=== PATIENT | male | born 1945 | race Caucasian/White ===

== ENCOUNTER 2016-11-12 09:57 | Emergency (ER) | payer OTHER, MEDICAID ==
--- NOTE | 2016-11-12 10:09 | DR.EXTPAIN ---
HPI - Time seen Time seen: 10:05 - PCP Primary Care Physician: KAVITHA - HPI Comment HPI Comment: PATIENT COMPLAINIG OF CHEST PAIN, TARIQ PAIN AND UPPER BACK PAIN. NO LOC. DRANK ALCOHOL AND HAD SLIGHT INCOORDINATION. - Complaint/Symptoms Chief Complaint Doctor Comments: FELL, NECK, CHEST AND BACK PAIN. Chief Complaint:: PT. FELL AT HOME AND C/O OF PAIN ALL OVER. PT. C/O NECK, BACK , AND CHEST PAIN. - Nurses notes reviewed Nurses Notes Review: Yes - Source History Provided: EMS - Mode of arrival Mode of Arrival: EMS - Timing Onset of Chief Complaint: 11/12/16 - Context History of: None - Associated signs and symptoms Associated Signs and Symptoms: Pain PMH - PMH Past Medical History: Yes Past Medical History: Depression, Anxiety, COPD, GERD, Arthritis, Hypertension Past Surgical History: Yes Surgical History: Ortho Surgery, Unknown - Family History History of Family Medical Conditions: Yes Family Medical History: Diabetes Mellitus, [place], Coronary Artery Disease, Sudden Cardiac , Hypertension - Social History Does patient currently use any type of tobacco product: Yes Have you used tobacco products in the last 12 months: Yes Type of Tobacco Use: Cigarettes Does any household member use tobacco: No Alcohol Use: Heavy Do you use any recreational Drugs:: No Lives With: Family Lives Where: Home - infectious screening In the last 2 months have you had wt loss of >10#?: NO Have you had fever, night sweats or hemotysis?: No Have you traveled outside the country in the last 6 months?: No Isolation: Standard ROS - Review of Systems Constitutional: Weakness, Fatigue. negative: Chills, Diaphoresis, Fever Eyes: No Symptoms Reported. negative: Eye Pain, Discharge ENTM: No Symptoms Reported. negative: Ear Pain, Nose Discharge, Nose Congestion , Throat Pain Respiratoy: Non-Productive Cough, Short of Breath. negative: Productive Cough, Wheezing, Hemoptysis Cardiovascular: negative: Edema, Palpitations, Syncope Gastrointestinal/Abdominal: negative: Abdominal Pain, Nausea, Vomiting Genitourinary: negative: Dysuria, Frequency, Hematuria Neurological: Headache, Weakness. negative: Dizziness Musculoskeletal: Back Pain, Neck Pain, Neck Integumentary: Wound (STASIS DERMATITIS) Hematologic/Lymphatic: Easy Bruising Endocrine: negative: Flushing, Increased Thirst, Increased Urine Psychiatric: negative: Hallucinations All Other Systems: Reviewed and Negative PE - Vital Signs Vitals: Temperature 98.0 F Pulse Rate 70 Respiratory Rate 17 Blood Pressure [Right Arm] 110/59 Blood Pressure [Right Arm] 140/79 Blood Pressure [Left Arm] 102/60 Blood Pressure 139/81 O2 Sat by Pulse Oximetry 97 - General Limitations: No Limitations General Appearance: Alert - Head Head Exam: Normal Inspection - Eyes Eye exam: Normal Appearance - ENT ENT Exam: Normal External Ear Exam - Neck Neck Exam: Trachea Midline - Chest Chest Inspection: Symmetric Chest Wall Rise - Respiratory Respiratory Exam: negative: Accessory Muscle Use Respiratory Exam: Bilateral Rhonchi, Upper Rhonchi, Lower Rhonchi - Cardiovascular Cardiovascular Exam: Regular Rate, Normal Rhythm, Normal Heart Sounds - Abdominal Exam Abdominal Exam: Normal Bowel Sounds, Soft, Tenderness Abdominal Tenderness: Diffuse, Mild - Extremities Extremities Exam: Normal Inspection - Lower Extremities Neurovascular/Tendon Exam: Normal Capillary Refill Gait Exam: Not Tested/Not Observed - Back Back Exam: Paraspinal Tenderness - Neurological Neurological Exam: Alert, Oriented X3 - Psychiatric Psychiatric Exam: Anxious - Skin Skin Exam: Erythema MDM - Differential Diagnosis Differential Diagnosis: Contusion, Fracture, Hematoma, Laceration, Neurovascular Injury, Sprain Course - Treatment Treatment: SEE ORDERS. REPEAT CARDIAC ENZYMES IMPROVE. - Consultation Consultation Comments: PATIENTS TROPONINE IS REPEATED IN ED AND IS IMPOVIND. - Education/Counseling Education/Counseling: Patient, Family Educated On: Treatment, Diagnosis ROR - Labs Reviewed Laboratory Results Reviewed?: Yes Result Diagrams: 11/12/16 10:16 11/12/16 14:15 Laboratory: WBC 11.5 X10^3/uL (3.6-10.0) H 11/12/16 10:16 RBC 4.01 X10^6/uL (4.7-6.0) L 11/12/16 10:16 Hgb 12.7 g/dL (13.5-18.0) L 11/12/16 10:16 Hct 37.8 % (42.0-54.0) L 11/12/16 10:16 MCV 94.2 fL (80.0-100.0) 11/12/16 10:16 MCH 31.5 pg (27.0-34.0) 11/12/16 10:16 MCHC 33.5 g/dL (33.0-35.0) 11/12/16 10:16 RDW 13.9 % (11.6-16.5) 11/12/16 10:16 Plt Count 265 X10^3/uL (150.0-450.0) 11/12/16 10:16 MPV 7.4 fL (7.4-11.0) 11/12/16 10:16 Neut % 73.1 % (42.0-75.0) 11/12/16 10:16 Lymph % 19.4 % (21.0-51.0) L 11/12/16 10:16 [place] % 5.9 % (0.0-13.0) 11/12/16 10:16 Eos % 0.6 % (0.9-2.9) L 11/12/16 10:16 Baso % 1.0 % (0.2-1.0) 11/12/16 10:16 Neut # 8.4 x10^3/uL (2.2-4.8) H 11/12/16 10:16 Lymph # 2.2 X10^3/uL (1.3-2.9) 11/12/16 10:16 [place] # 0.7 x10^3/uL (0.3-0.8) 11/12/16 10:16 Eos # 0.1 x10^3/uL (0.0-0.2) 11/12/16 10:16 Baso # 0.1 X10^3/uL (0.0-0.1) 11/12/16 10:16 Absolute Nucleated RBC 0.0 /100WBC 11/12/16 10:16 Sodium 138 mmol/L (136-145) 11/12/16 14:15 Corrected Sodium TNP 11/12/16 14:15 Potassium 5.3 mmol/L (3.5-5.1) H 11/12/16 14:15 Chloride 107 mmol/L (98-107) 11/12/16 14:15 Carbon Dioxide 16.8 mmol/L (21-32) L 11/12/16 14:15 BUN 14 mg/dL (7-18) 11/12/16 14:15 Creatinine 1.40 mg/dL (0.70-1.30) H 11/12/16 14:15 Est GFR (MDRD) Af Amer > 60 (>60) 11/12/16 14:15 Est GFR (MDRD) Non-Af 53 (>60) L 11/12/16 14:15 Glucose 82 mg/dL (65-99) 11/12/16 14:15 Calcium 8.5 mg/dL (8.5-10.1) 11/12/16 14:15 Corrected Calcium 9.1 mg/dL (8.5-10.1) 11/12/16 14:15 Total Bilirubin 0.30 mg/dL (0.2-1.0) 11/12/16 14:15 AST 51 Units/L (15-37) H 11/12/16 14:15 ALT 18 Units/L (12-78) 11/12/16 14:15 Alkaline Phosphatase 67 Units/L (46-116) 11/12/16 14:15 Creatine Kinase 2252 Units/L (39-308) H 11/12/16 14:55 CK-MB (CK-2) 3.9 ng/mL (0-4.0) 11/12/16 14:55 CK/CKMB % Calc 0.2 % (<4) 11/12/16 14:55 Troponin I < 0.02 ng/mL (0-1.5) 11/12/16 14:55 Total Protein 6.6 g/dL (6.4-8.2) 11/12/16 14:15 Albumin 3.2 g/dL (3.4-5.0) L 11/12/16 14:15 Globulin 3.4 g/dL (2.5-4.5) 11/12/16 14:15 Albumin/Globulin Ratio 0.9 Ratio (1.1-2.1) L 11/12/16 14:15 Ethyl Alcohol mg/dL 247 mg/dL (0-19.9) H 11/12/16 10:16 - XRAY XRAY Interpreted by: Radiologist XRAY Findings: REPORT DISCUS WITH PATIENT. - EKG Rhythm: NSR (EKG NOTED) - Diagnosis Discharge Problem: Alcohol use disorder, Abnormal cardiac enzyme level, Chest wall pain, Cervical muscle strain - Discharge Plan Disposition: 01 HOME, SELF-CARE Condition: Stable Prescriptions: Ibuprofen [MOTRIN TAB 600 MG *] 600 mg PO BID PRN #20 tab PRN Reason: Pain/Inflammation Ranitidine HCl [ZANTAC TAB 150 MG *] 150 mg PO BID #60 tab - Follow ups/Referrals Follow ups/Referrals: Carol Ann [Primary Care Provider] - 3 days - Instructions Instructions: Chest Wall Pain, Cervical Strain and Sprain With Rehab-SportsMed , Alcohol Use Disorder Additional Instructions: RETURN TO ED IF WORSE.
[2016-11-12 10:14] VITALS: BP 139/81; BMI 15.5
[2016-11-12 10:27] LABS: BASOPHILS # (AUTO) 0.1 X10^3/uL (0.0-0.1); EOSINOPHILS # (AUTO) 0.1 x10^3/uL (0.0-0.2); EOSINOPHILS % (AUTO) 0.6 % (0.9-2.9); HEMATOCRIT 37.8 % (42.0-54.0); HEMOGLOBIN 12.7 g/dL (13.5-18.0); LYMPHOCYTES # (AUTO) 2.2 X10^3/uL (1.3-2.9); LYMPHOCYTES % (AUTO) 19.4 % (21.0-51.0); MEAN CORPUSCULAR HEMOGLOBIN 31.5 pg (27.0-34.0); MEAN CORPUSCULAR HGB CONC 33.5 g/dL (33.0-35.0); MEAN CORPUSCULAR VOLUME 94.2 fL (80.0-100.0); MEAN PLATELET VOLUME 7.4 fL (7.4-11.0); MONOCYTES # (AUTO) 0.7 x10^3/uL (0.3-0.8); MONOCYTES % (AUTO) 5.9 % (0.0-13.0); NEUTROPHILS # (AUTO) 8.4 x10^3/uL (2.2-4.8); NEUTROPHILS % (AUTO) 73.1 % (42.0-75.0); PLATELET COUNT 265 X10^3/uL (150.0-450.0); RED BLOOD COUNT 4.01 X10^6/uL (4.7-6.0); RED CELL DISTRIBUTION WIDTH 13.9 % (11.6-16.5); WHITE BLOOD COUNT 11.5 X10^3/uL (3.6-10.0)
[2016-11-12 10:42] LABS: BLOOD UREA NITROGEN 13 mg/dL (7-18); CALCIUM 8.6 mg/dL (8.5-10.1); CARBON DIOXIDE 18.1 mmol/L (21-32); CHLORIDE 105 mmol/L (98-107); CREATININE 1.37 mg/dL (0.70-1.30); GLUCOSE 83 mg/dL (65-99); SODIUM 137 mmol/L (136-145); TROPONIN I 0.02 ng/mL (0-1.5); eGFR BLACK RACES > 60 (>60); eGFR NON BLACK RACES 55 (>60)
--- NOTE | 2016-11-12 10:50 | CT ---
HISTORY: Fall Study: CT brain without contrast Comparison: 03/07/2014 Technique: Multiple axial images of the brain were obtained from the skull base to the vertex without administr ation of IV contrast. Dose reduction techniques including Automated Exposure Control (AEC) and adju stment of mA and kV were utilized. Findings: There is advanced generalized cerebral volume loss and nonspecific white matter hypoattenuation like ly due to chronic microvascular ischemic changes. No evidence of acute hemorrhage, midline shift, m ass effect or abnormal extra-axial fluid collection. The ventricular system is symmetric and nondil ated. The soft tissues and osseous structures are unremarkable. The visualized paranasal sinuses ar e clear. IMPRESSION: 1. Advanced chronic atrophy and nonspecific white matter changes likely due to microvascular ischemi a. No acute intracranial abnormality identified. Reported By:
--- NOTE | 2016-11-12 10:53 | CT ---
HISTORY: Fall Study: CT cervical spine without contrast Comparison: 08/10/2016 Technique: Multiple axial images of the cervical spine were obtained from the skull base to the thor acic inlet without administration of IV contrast. Sagittal and coronal reformats were performed and reviewed. Dose reduction techniques including Automated Exposure Control (AEC) and adjustment of mA and kV were utilized. Findings: Normal cervical alignment. Vertebral body heights are preserved. Multilevel spondylosis is present t hroughout the cervical spine. Mild facet degenerative changes and uncovertebral spurring is also see n. The posterior elements are intact. No evidence of acute fracture or dislocation. Severe emphysematous changes are visualized at the lung apices. The visualized lung apices are clear . IMPRESSION: 1. Chronic cervical degenerative changes without acute osseous abnormality. Reported By:
[2016-11-12 11:05] LABS: ALANINE AMINOTRANSFERASE 19 Units/L (12-78); ALBUMIN 3.5 g/dL (3.4-5.0); ALKALINE PHOSPHATASE 68 Units/L (46-116); ASPARTATE AMINO TRANSFERASE 54 Units/L (15-37); BLOOD ALCOHOL 247 mg/dL (0-19.9)
--- NOTE | 2016-11-12 11:06 | CT ---
HISTORY: Fall Study: CT chest without contrast Comparison: Chest radiograph 08/10/2016, thoracic spine CT 08/10/2016 Technique: Multiple axial images of the chest were obtained. Sagittal and coronal reconstructions w ere performed and reviewed. Dose reduction techniques including Automated Exposure Control (AEC) an d adjustment of mA and kV were utilized. Findings: There is diffuse osteopenia with increased kyphosis of the thoracic spine. Stable chronic compressi on fractures of T3, T6, T11, and T12 are noted. No acute fracture is identified. There is a chronic fracture of the mid sternal body with mild depression. Multilevel disc space narrowing and spondylo sis is present. There are chronic emphysematous changes present with mild peripheral areas of fibros is at the lung bases. No acute infiltrate, effusion or pneumothorax identified. There is chronic ath erosclerotic disease of the aorta and coronary arteries. Normal-sized heart. No pericardial effusion identified. The soft tissues are unremarkable. No acute findings seen in the visualized upper abdom en. IMPRESSION: 1. No acute abnormality identified. 2. Chronic emphysematous changes. 3. Atherosclerotic disease of the aorta and coronary arteries. 4. Chronic stable compression fractures of T3, T6, T11, and T12. Reported By:
[2016-11-12 11:09] LABS: CKMB % 0.2 % (<4); CREATINE KINASE 2716 Units/L (39-308)
[2016-11-12 11:11] LABS: CREATINE KINASE MB 4.7 ng/mL (0-4.0)
[2016-11-12] MEDS ORDERED: PEPCID 20 MG IV PREMIX* 20 MG/50 ML BAG IV ONE ×2 (11:26→11:33)
[2016-11-12] MEDS ORDERED: TORADOL 30 MG VIAL IVP ONE (11:26)
[2016-11-12] MEDS ORDERED: TORADOL 30 MG VIAL ONE (11:33)
[2016-11-12] MEDS ORDERED: NS 1000 ML 1,000 ML ONE (12:29)
[2016-11-12] MEDS ORDERED: NS 1000 ML 1,000 ML IV SCH (13:00)
[2016-11-12 14:43] LABS: ALANINE AMINOTRANSFERASE 18 Units/L (12-78); ALBUMIN 3.2 g/dL (3.4-5.0); ALKALINE PHOSPHATASE 67 Units/L (46-116); BLOOD UREA NITROGEN 14 mg/dL (7-18); CALCIUM 8.5 mg/dL (8.5-10.1); CARBON DIOXIDE 16.8 mmol/L (21-32); CHLORIDE 107 mmol/L (98-107); COR CA(FOR HYPOALB) 9.1 mg/dL (8.5-10.1); GLUCOSE 82 mg/dL (65-99); SODIUM 138 mmol/L (136-145); TOTAL PROTEIN 6.6 g/dL (6.4-8.2); eGFR BLACK RACES > 60 (>60); eGFR NON BLACK RACES 53 (>60)
[2016-11-12 14:46] LABS: ASPARTATE AMINO TRANSFERASE 51 Units/L (15-37)
[2016-11-12 16:06] LABS: CREATINE KINASE MB 3.9 ng/mL (0-4.0); TROPONIN I < 0.02 ng/mL (0-1.5)
[2016-11-12] MEDS ORDERED: ZOFRAN INJ 4 MG VIAL ONE (16:07)
[2016-11-12 16:10] LABS: CKMB % 0.2 % (<4); CREATINE KINASE 2252 Units/L (39-308)
== END 2016-11-12 17:20 | disposition home or self-care (01) ==
LOC: ER 09:59
DX: S16.1XXA Strain of muscle, fascia and tendon at neck level, initial encounter (principal); F10.10 Alcohol abuse, uncomplicated; R74.8 Abnormal levels of other serum enzymes; R07.89 Other chest pain; W19.XXXA Unspecified fall, initial encounter; Y92.009 Unspecified place in unspecified non-institutional (private) residence as the place of occurrence of the external cause
CPT/HCPCS: 36415; 70450; 71250; 72125; 80053; 80320; 82550; 82553; 84484; 85025; 93005; 93010; 96365; 96367; 96374; 96375; 99283; A4222; S0028; G6040; J1885; J2405

== ENCOUNTER 2016-11-30 08:54 | Emergency (ER) | payer OTHER, MEDICAID ==
[2016-11-30 09:12] VITALS: BP 111/89; BMI 16.0
[2016-11-30 09:16] LABS: BILIRUBIN,URINE NEGATIVE (NEGATIVE); BLOOD/HEMOGLOBIN,URINE 1+ (NEGATIVE); GLUCOSE, URINE NEGATIVE (NEGATIVE); KETONES,URINE NEGATIVE (NEGATIVE); LEUKOCYTE ESTERASE ,URINE NEGATIVE (NEGATIVE); NITRITES,URINE NEGATIVE (NEGATIVE); PROTEIN,URINE 1+ (NEGATIVE); UROBILINOGEN,URINE NORMAL (NORMAL)
--- NOTE | 2016-11-30 09:22 | DR.PSYCH ---
HPI - Time Seen Time seen: 09:25 - PCP Primary Care Physician: maddi meneses - HPI Comment HPI Comment: PATIENT CRYING IN ED. HE LIVE WITH HIS BROTHER WHO UNEXPECTEDLY THIS MORNING. HE WAS FOUND IN HIS BED. THEY WERE TOGETHER LAST NIGHT. HE MAY HAVE SAID HE WISH TO BE WITH HIM. HE HAVE NO INTENTION TO KILL HIMSELF. HE WISH TO GO HOME AND TAKE CARE OF HIS BROTHERS . HIS ADULT NEPHEW CLOSE TO PATIENT IN ED WITH HIM. HE LIVE CLOSE TO HIS UNCLES AND IS CLOSE TO THEM. HE WILL TAKE HIS UNCLE HOME TO LIVE WITH HIM. THIS WAY HIS UNCLE WILL NOT BE BY HIMSELF ALONE. THE NEPHEW SAID HIS UNCLE DENIES THAT HE WANT TO KILL HIMSELF. - Complaint Chief Complaint Doctors Comments: PATIENT HERE IN ED BECAUSE HE TOLD Chief Complaint:: wants to bc his brother just Self Treatment fo Chief Complaint: none - Reviewed Nurses Notes Review: Yes - Source History Provided: Patient - Mode of Arrival Mode of Arrival: Ambulatory - Timing Onset of Chief Complaint: 11/30/16 Came on: Suddenly - Duration Duration: Since Onset Duration: Days - Context Presents With: Depression Ideation: Suicidal Plan: None History of: None Medication Compliance: Yes - Quality Quality: None Hallucinations: None - Severity Severity: Able to care for self - Associated signs and symptoms Intoxification: ETOH PMH - PMH Past Medical History: Yes Past Medical History: COPD, Coronary Artery Disease Past Surgical History: Yes Surgical History: Ortho Surgery - Family History History of Family Medical Conditions: Yes Family Medical History: Coronary Artery Disease - Social History Does patient currently use any type of tobacco product: Yes Have you used tobacco products in the last 12 months: Yes Type of Tobacco Use: Cigarettes Alcohol Use: Heavy, DAILY Do you use any recreational Drugs:: No Lives With: Family Lives Where: Home - infectious screening In the last 2 months have you had wt loss of >10#?: NO Have you had fever, night sweats or hemotysis?: No Have you traveled outside the country in the last 6 months?: No Isolation: Standard ROS - Review of Systems Constitutional: No Symptoms Reported Eyes: No Symptoms Reported ENTM: No Symptoms Reported Respiratoy: Non-Productive Cough Cardiovascular: No Symptoms Reported Gastrointestinal/Abdominal: No Symptoms Reported Genitourinary: No Symptoms Reported Neurological: No Symptoms Reported. negative: Headache Musculoskeletal: No Symptoms Reported Integumentary: No Symptoms Reported Hematologic/Lymphatic: No Symptoms Reported Endocrine: No Symptoms Reported Psychiatric: Depression, Suicidal (ALCOHOL USE) All Other Systems: Reviewed and Negative PE - Vitals Vitals: Temperature 98.6 F Pulse Rate 84 Respiratory Rate 20 Blood Pressure [Right Arm] 110/59 Blood Pressure [Right Arm] 140/79 Blood Pressure [Left Arm] 102/60 Blood Pressure 111/89 O2 Sat by Pulse Oximetry 100 - General Limitations: No Limitations, Other (PATIENT CRYING.) General Appearance: Alert - Head Head Exam: Normal Inspection Head Exam Physical: Other (NONE) - Eyes Eye exam: PERRL, EOMI. negative: Scleral Icterus, Conjunctival Injection, Nystagmus Pupils: Regular, Round: Bilateral, Reactive: Bilateral Sclera/Conjunctival: Normal Inspection: Bilateral - ENT ENT Exam: Normal Oropharynx, Normal External Ear Exam, Mucous Membranes Moist, TM's Normal Bilaterally - Neck Neck Exam: Trachea Midline. negative: Tenderness, Meningismus, Lymphadenopathy - Chest Chest Inspection: Symmetric Chest Wall Rise - Respiratory Respiratory Exam: Normal Lung Sounds Bilat Respiratory Exam: Bilateral Rhonchi, Lower Rhonchi - Cardiovascular Cardiovascular Exam: Regular Rate, Normal Rhythm, Normal Heart Sounds - Abdominal Exam Abdominal Exam: Normal Bowel Sounds, Soft. negative: Tenderness - Extremities Extremities Exam: Normal Inspection. negative: Tenderness, Calf Tenderness - Back Back Exam: Paraspinal Tenderness - Neurologic Neurological Exam: Alert, Oriented X3, CN II-XII Intact, Normal Gait, Reflexes Normal. negative: Motor Sensory Deficit Speech: Fluid Speech Cranial Nerve Exam: EOM Function (II, III, IV, ): Normal, Facial Sensation (V) : Normal, Facial Palsy (VII): Normal, Gag reflex (XI): Normal, Spinal Accessory Function (XI): Normal, Tongue Deviation: Normal Cerebellar Function: Normal Gait Motor Strength - LUE: 5/5 Motor Strength - RUE: 5/5 Motor Strength - LLE: 5/5 Motor Strength - RLE: 5/5 Upper Motor Neuron Exam: Babinski Sign: Normal DTR: achilles tendon (L): 4+, achilles tendon (R): 4+, brachioradialis (L): 4+, brachioradialis (R): 4+, Patellar (L): 4+, patellar (R): 4+ - Psychiatric Psychiatric Exam: Other (CRYING FOR LOSS OF HIS BROTHER.) Expanded Psychiatric Exam: Other - Skin Skin Exam: Intact MDD - Differential Diagnosis Differential diagnosis: Depression (,GRIEF, ALCOHOL USE) Course - Treatment Treatment: SEE ORDERS - Consultation Consultation Comments: PAGE DR. PLUMMER BUT PATIENT SIGN OUT AMA BEFORE WE TALK TO THE DOCTOR. DR. PIERCE OFFICE WILL CALL PATIENT TO SEE DR. PLUMMER IN THE OFFICE. - Education/Counseling Education/Counseling: Patient, Education Educated On: Diagnosis ROR - Labs Reviewed Laboratory Results Reviewed?: Yes Result Diagrams: 11/30/16 09:22 11/30/16 09:22 Laboratory: WBC 10.7 X10^3/uL (3.6-10.0) H 11/30/16 09: RBC 4.12 X10^6/uL (4.7-6.0) L 11/30/16 09:22 Hgb 13.6 g/dL (13.5-18.0) 11/30/16 09: Hct 39.0 % (42.0-54.0) L 11/30/16 09: MCV 94.7 fL (80.0-100.0) 11/30/16 09:22 MCH 33.0 pg (27.0-34.0) 11/30/16 09: MCHC 34.8 g/dL (33.0-35.0) 11/30/16 09: RDW 13.9 % (11.6-16.5) 11/30/16 09: Plt Count 281 X10^3/uL (150.0-450.0) 11/30/16 09: MPV 7.7 fL (7.4-11.0) 11/30/16 09:22 Neut % 62.2 % (42.0-75.0) 11/30/16 09: Lymph % 29.8 % (21.0-51.0) 11/30/16 09: [place] % 6.2 % (0.0-13.0) 11/30/16 09: Eos % 1.2 % (0.9-2.9) 11/30/16 09: Baso % 0.6 % (0.2-1.0) 11/30/16 09: Neut # 6.6 x10^3/uL (2.2-4.8) H 11/30/16 09:22 Lymph # 3.2 X10^3/uL (1.3-2.9) H 11/30/16 09:22 [place] # 0.7 x10^3/uL (0.3-0.8) 11/30/16 09:22 Eos # 0.1 x10^3/uL (0.0-0.2) 11/30/16 09:22 Baso # 0.1 X10^3/uL (0.0-0.1) 11/30/16 09:22 Absolute Nucleated RBC 0.0 /100WBC 11/30/16 09:22 Sodium 131 mmol/L (136-145) L 11/30/16 09:22 Corrected Sodium TNP 11/30/16 09:22 Potassium 5.1 mmol/L (3.5-5.1) 11/30/16 09: Chloride 97 mmol/L (98-107) L 11/30/16 09:22 Carbon Dioxide 23.5 mmol/L (21-32) 11/30/16 09:22 BUN 10 mg/dL (7-18) 11/30/16 09:22 Creatinine 1.08 mg/dL (0.70-1.30) 11/30/16 09:22 Est GFR (MDRD) Af Amer > 60 (>60) 11/30/16 09:22 Est GFR (MDRD) Non-Af > 60 (>60) 11/30/16 09:22 Glucose 92 mg/dL (65-99) 11/30/16 09:22 Calcium 9.5 mg/dL (8.5-10.1) 11/30/16 09:22 Corrected Calcium TNP 11/30/16 09:22 Total Bilirubin 0.40 mg/dL (0.2-1.0) 11/30/16 09:22 AST 15 Units/L (15-37) 11/30/16 09:22 ALT 15 Units/L (12-78) 11/30/16 09:22 Alkaline Phosphatase 68 Units/L (46-116) 11/30/16 09:22 Total Protein 7.4 g/dL (6.4-8.2) 11/30/16 09:22 Albumin 3.6 g/dL (3.4-5.0) 11/30/16 09:22 Globulin 3.8 g/dL (2.5-4.5) 11/30/16 09:22 Albumin/Globulin Ratio 0.9 Ratio (1.1-2.1) L 11/30/16 09:22 Specimen Type Clean catch urine 11/30/16 09:06 Urine Color Yellow (YELLOW) 11/30/16 09:06 Urine Appearance Clear (CLEAR) 11/30/16 09:06 Urine pH 6.0 (5.0 - 8.0) 11/30/16 09:06 Ur Specific [place] 1.015 (1.000-1.030) 11/30/16 09:06 Urine Protein 1+ (NEGATIVE) 11/30/16 09:06 Urine Glucose (UA) Negative (NEGATIVE) 11/30/16 09:06 Urine Ketones Negative (NEGATIVE) 11/30/16 09:06 Urine Occult Blood 1+ (NEGATIVE) 11/30/16 09:06 Urine Nitrite Negative (NEGATIVE) 11/30/16 09:06 Urine Bilirubin Negative (NEGATIVE) 11/30/16 09:06 Urine Urobilinogen Normal (NORMAL) 11/30/16 09:06 Ur Leukocyte Esterase Negative (NEGATIVE) 11/30/16 09:06 Urine RBC Rare /HPF (NEGATIVE) 11/30/16 09:06 Urine WBC None seen /HPF (NEGATIVE) 11/30/16 09:06 Ur Squamous Epith Cells Rare /HPF (NEGATIVE) 11/30/16 09:06 Amorphous Sediment Trace /HPF (NEGATIVE) 11/30/16 09:06 Urine Bacteria Negative /HPF (NEGATIVE) 11/30/16 09:06 Ur Culture Indicated? No/not indicated 11/30/16 09:06 Salicylates 5.0 mg/dL (2.8-20) 11/30/16 09:22 Urine Opiates Screen Negative (NEG=<300) 11/30/16 09:06 Urine Methadone Screen Negative (NEG=<300) 11/30/16 09:06 Acetaminophen 0.0 ug/mL (10-30) L 11/30/16 09:22 Ur Barbiturates Screen Negative (NEG=<200) 11/30/16 09:06 Ur Phencyclidine Scrn Negative (NEG=<25) 11/30/16 09:06 Ur Amphetamines Screen Negative (NEG=<1000) 11/30/16 09:06 U Benzodiazepines Scrn Positive (NEG=<200) 11/30/16 09:06 Urine Cocaine Screen Negative (NEG=<300) 11/30/16 09:06 U Marijuana (THC) Screen Negative (NEG=<50) 11/30/16 09:06 Ethyl Alcohol mg/dL < 3 mg/dL (0-19.9) 11/30/16 09:22 - EKG [place]: Normal Rhythm: NSR (EKG NOTED) - Diagnosis Discharge Problem: Grief, Alcohol use, Acute depression - Discharge Plan Disposition: 07 AGAINST MEDICAL ADVICE Condition: Stable - Follow ups/Referrals Follow ups/Referrals: Maddi Meneses [Primary Care Provider] - 3 days - Instructions
[2016-11-30 09:37] LABS: APPEARANCE,URINE CLEAR (CLEAR); BACTERIA,URINE NEGATIVE /HPF (NEGATIVE); COLOR,URINE YELLOW (YELLOW); RBC,URINE RARE /HPF (NEGATIVE); SQUAMOUS EPITHELIAL CELL,UR RARE /HPF (NEGATIVE)
[2016-11-30 09:38] LABS: AMORPHOUS SEDIMENT,UR TRACE /HPF (NEGATIVE)
[2016-11-30 09:45] LABS: BASOPHILS # (AUTO) 0.1 X10^3/uL (0.0-0.1); BASOPHILS % (AUTO) 0.6 % (0.2-1.0); EOSINOPHILS # (AUTO) 0.1 x10^3/uL (0.0-0.2); EOSINOPHILS % (AUTO) 1.2 % (0.9-2.9); HEMOGLOBIN 13.6 g/dL (13.5-18.0); LYMPHOCYTES # (AUTO) 3.2 X10^3/uL (1.3-2.9); LYMPHOCYTES % (AUTO) 29.8 % (21.0-51.0); MEAN CORPUSCULAR HGB CONC 34.8 g/dL (33.0-35.0); MEAN CORPUSCULAR VOLUME 94.7 fL (80.0-100.0); MEAN PLATELET VOLUME 7.7 fL (7.4-11.0); MONOCYTES # (AUTO) 0.7 x10^3/uL (0.3-0.8); MONOCYTES % (AUTO) 6.2 % (0.0-13.0); NEUTROPHILS # (AUTO) 6.6 x10^3/uL (2.2-4.8); NEUTROPHILS % (AUTO) 62.2 % (42.0-75.0); PLATELET COUNT 281 X10^3/uL (150.0-450.0); RED BLOOD COUNT 4.12 X10^6/uL (4.7-6.0); RED CELL DISTRIBUTION WIDTH 13.9 % (11.6-16.5); WHITE BLOOD COUNT 10.7 X10^3/uL (3.6-10.0)
[2016-11-30 09:57] LABS: ALANINE AMINOTRANSFERASE 15 Units/L (12-78); ALBUMIN 3.6 g/dL (3.4-5.0); ALKALINE PHOSPHATASE 68 Units/L (46-116); ASPARTATE AMINO TRANSFERASE 15 Units/L (15-37); BLOOD ALCOHOL < 3 mg/dL (0-19.9); BLOOD UREA NITROGEN 10 mg/dL (7-18); CALCIUM 9.5 mg/dL (8.5-10.1); CARBON DIOXIDE 23.5 mmol/L (21-32); CHLORIDE 97 mmol/L (98-107); CREATININE 1.08 mg/dL (0.70-1.30); GLUCOSE 92 mg/dL (65-99); SODIUM 131 mmol/L (136-145); TOTAL PROTEIN 7.4 g/dL (6.4-8.2); eGFR BLACK RACES > 60 (>60); eGFR NON BLACK RACES > 60 (>60)
== END 2016-11-30 11:15 | disposition left against medical advice (07) ==
LOC: ER 09:04
DX: F43.21 Adjustment disorder with depressed mood (principal); F10.929 Alcohol use, unspecified with intoxication, unspecified; F32.89 Other specified depressive episodes
CPT/HCPCS: 36415; 80053; 80307; 80320; 81001; 85025; 93005; 93010; 99283; G0434; G6038; G6039; G6040

== ENCOUNTER 2017-10-29 15:27 | Emergency (ER) | payer OTHER, MEDICAID ==
[2017-10-29 15:37] VITALS: BMI 17.6
--- NOTE | 2017-10-29 17:08 | RAD ---
HISTORY: Chest pain. Cough. Study: AP portable chest Comparison: 10/09/2017 Findings: There is again noted to be findings of chronic interstitial fibrosis and hyperinflation. The heart s ize is normal. Mild apical pleural/parenchymal scarring is present. Degenerative changes present in the shoulders. Small metallic foreign bodies overlying the left side of the chest. IMPRESSION: 1. Findings of underlying chronic obstructive pulmonary disease. 2. No radiographic evidence of acute cardiopulmonary disease or significant change is noted when com pared to the prior examination. Reported By:
--- NOTE | 2017-10-29 17:16 | DR.CP ---
HPI - Time Seen Time seen: 16:40 - PCP Primary Care Physician: Dr. Leblanc - HPI Comment HPI Comment: GETTING WORSE. NOFEVER. NO DYSURIA. SINUS CONGESTION PRESENT. - Complaint Chief Complaint Doctor Comments: CHEST PAIN, PLEURITIC WITH PRODUCTIVE COUGH YELLOW SPUTUM TIMES 2 DAYS. Chief Complaint:: Pt states,"Since Sunday morning I've been coughing alot and coughing up yellow stuff." Pt c/o substernal chest pain described as constant exacerbated by deep breaths and coughing. Pain is better with rest. - Reviewed Nurses Notes Review: Yes - Source History Provided: Patient - Mode of Arrival Mode of Arrival: Ambulatory - Timing Onset of Chief Complaint: 10/27/17 Came on: Suddenly Pain: Present Now - Duration Duration: Intermittent Duration: Days - Location Location of Chest Pain: Chest (SUBSTERNAL, LOWER.) Chest Pain Radiation Location: None - Context Cardiac Risk Factors: Smoker, Family History, Hyperlipidemia, HTN PE Risk Factors: None History of: SC, Aspirin in last 24 hours Prehospital Care: ASA - Quality Quality: Sharp, Heavy - Severity Severity: Moderate - Modifying Factors Impoves: Rest - Associated Signs and Symptoms Associated Signs and Symptoms: None PMH - PMH Past Medical History: Yes Past Medical History: Arthritis, COPD, Coronary Artery Disease, Dyslipidemia, Hypertension, SC Past Medical History Comment: Peripheral Vascular Disease Past Surgical History: Yes Surgical History: Ortho Surgery Past Surgical History Comment: Left hip surgery - Family History History of Family Medical Conditions: Yes Family Medical History: Diabetes Mellitus, SC, Coronary Artery Disease, Hypertension Family Medical History Comment: CVA - Social History Does patient currently use any type of tobacco product: Yes Have you used tobacco products in the last 12 months: Yes Type of Tobacco Use: Cigarettes How many years tobacco product used: 60 Does any household member use tobacco: Yes Alcohol Use: None Do you use any recreational Drugs:: No Lives With: Family Lives Where: Home - infectious screening In the last 2 months have you had wt loss of >10#?: NO Have you had fever, night sweats or hemotysis?: No Have you traveled outside the country in the last 6 months?: No Isolation: Standard ROS - Review of Systems Constitutional: Weakness, Fatigue. negative: Chills, Fever Eyes: No Symptoms Reported ENTM: Nose Discharge, Nose Congestion, Throat Pain. negative: Ear Pain Respiratoy: Productive Cough (YELLOW SPUTUM.), Short of Breath, Wheezing Cardiovascular: Chest Pain. negative: Palpitations, Syncope Gastrointestinal/Abdominal: Abdominal Pain (EPIGASTRIC AREA.). negative: Diarrhea, Nausea, Vomiting Genitourinary: No Symptoms Reported. negative: Dysuria, Hematuria Neurological: Weakness, Dizziness. negative: Headache Musculoskeletal: No Symptoms Reported Integumentary: No Symptoms Reported Hematologic/Lymphatic: Easy Bleeding, Easy Bruising Endocrine: No Symptoms Reported All Other Systems: Reviewed and Negative PE - Vitals Vitals: Temperature 98.2 F Pulse Rate [Apical] 86 Pulse Rate 106 Respiratory Rate 20 Blood Pressure [Right Arm] 132/74 Blood Pressure [Right Arm] 140/79 Blood Pressure [Left Arm] 102/60 Blood Pressure 169/80 O2 Sat by Pulse Oximetry 98 - General Limitations: No Limitations General Appearance: Alert - Head Head Exam: Normal Inspection - Eyes Eye exam: Normal Appearance - ENT ENT Exam: Normal External Ear Exam - Chest Chest Inspection: Symmetric Chest Wall Rise - Respiratory Respiratory Exam: Normal Lung Sounds Bilat Respiratory Exam: Bilateral Wheezing, Bilateral Rhonchi, Upper Wheezing, Upper Rhonchi, Lower Wheezing, Lower Rhonchi - Cardiovascular Cardiovascular Exam: Regular Rate, Normal Rhythm, Normal Heart Sounds Pulse: Normal, Radial, Femoral Edema: Normal - Abdominal Exam Abdominal Exam: Normal Bowel Sounds, Soft, Distention Abdominal Tenderness: Epigastrium - Extremities Extremities Exam: Normal Inspection - Back Back Exam: Paraspinal Tenderness - Neurologic Neurological Exam: Alert, Oriented X3, CN II-XII Intact. negative: Motor Sensory Deficit - Psychiatric Psychiatric Exam: Normal Affect, Normal Mood - Skin Skin Exam: Normal Color MDM - Additional Information Additional Information Obtained From: Family - Differential Diagnosis Differential Diagnosis: Angina, Chest Wall Pain, Cholelithasis, Costochondritis , Esophageal Reflux/Spasm, Gastritis, Myocardial Infarction, Pericarditis, Pleuritis, Pancreatitis, Pneumonia, Pneumothorax, Pulmonary Embolus Course - Treatment Treatment: SEE ORDERS. - Education/Counseling Education/Counseling: Patient, Family, Education Educated On: Diagnosis, Needs for Follow Up ROR - Labs Reviewed Laboratory Results Reviewed?: Yes Result Diagrams: 10/29/17 16:57 10/29/17 16:57 Laboratory: WBC 9.3 X10^3/uL (3.6-10.0) 10/29/17 16:57 RBC 4.31 X10^6/uL (4.7-6.0) L 10/29/17 16:57 Hgb 13.3 g/dL (13.5-18.0) L 10/29/17 16:57 Hct 39.5 % (42.0-54.0) L 10/29/17 16:57 MCV 91.6 fL (80.0-100.0) 10/29/17 16:57 MCH 30.9 pg (27.0-34.0) 10/29/17 16:57 MCHC 33.7 g/dL (33.0-35.0) 10/29/17 16:57 RDW 14.3 % (11.6-16.5) 10/29/17 16:57 Plt Count 311 X10^3/uL (150.0-450.0) 10/29/17 16:57 MPV 8.1 fL (7.4-11.0) 10/29/17 16:57 Neut % (Auto) 51.9 % (42.0-75.0) 10/29/17 16:57 Lymph % (Auto) 37.9 % (21.0-51.0) 10/29/17 16:57 Dare % (Auto) 8.2 % (0.0-13.0) 10/29/17 16:57 Eos % (Auto) 1.5 % (0.9-2.9) 10/29/17 16:57 Baso % (Auto) 0.5 % (0.2-1.0) 10/29/17 16:57 Neut # (Auto) 4.8 x10^3/uL (2.2-4.8) 10/29/17 16:57 Lymph # (Auto) 3.5 X10^3/uL (1.3-2.9) H 10/29/17 16:57 Dare # (Auto) 0.8 x10^3/uL (0.3-0.8) 10/29/17 16:57 Eos # (Auto) 0.1 x10^3/uL (0.0-0.2) 10/29/17 16:57 Baso # (Auto) 0.0 X10^3/uL (0.0-0.1) 10/29/17 16:57 Absolute Nucleated RBC 0.0 /100WBC 10/29/17 16:57 D-Dimer 1370 ng/mL (0-400) H* 10/29/17 16:57 Sodium 141 mmol/L (136-145) 10/29/17 16:57 Corrected Sodium TNP 10/29/17 16:57 Potassium 4.9 mmol/L (3.5-5.1) 10/29/17 16:57 Chloride 107 mmol/L (98-107) 10/29/17 16:57 Carbon Dioxide 23.2 mmol/L (21-32) 10/29/17 16:57 BUN 10 mg/dL (7-18) 10/29/17 16:57 Creatinine 1.24 mg/dL (0.70-1.30) 10/29/17 16:57 Est GFR (MDRD) Af Amer > 60 (>60) 10/29/17 16:57 Est GFR (MDRD) Non-Af > 60 (>60) 10/29/17 16:57 Glucose 92 mg/dL (65-99) 10/29/17 16:57 Calcium 10.0 mg/dL (8.5-10.1) 10/29/17 16:57 Corrected Calcium TNP 10/29/17 16:57 Total Bilirubin 0.30 mg/dL (0.2-1.0) 10/29/17 16:57 AST 16 Units/L (15-37) 10/29/17 16:57 ALT 19 Units/L (12-78) 10/29/17 16:57 Alkaline Phosphatase 86 Units/L (46-116) 10/29/17 16:57 Creatine Kinase 50 Units/L (39-308) 10/29/17 16:57 CK-MB (CK-2) 1.7 ng/mL (0-4.0) 10/29/17 16:57 CK/CKMB % Calc 3.4 % (<4) 10/29/17 16:57 Troponin I < 0.02 ng/mL (0-1.5) 10/29/17 16:57 Total Protein 8.0 g/dL (6.4-8.2) 10/29/17 16:57 Albumin 3.5 g/dL (3.4-5.0) 10/29/17 16:57 Globulin 4.5 g/dL (2.5-4.5) 10/29/17 16:57 Albumin/Globulin Ratio 0.8 Ratio (1.1-2.1) L 10/29/17 16:57 Specimen Type Random urine 10/29/17 17:44 Urine Color Yellow (YELLOW) 10/29/17 17:44 Urine Appearance Clear (CLEAR) 10/29/17 17:44 Urine pH 6.0 (5.0 - 8.0) 10/29/17 17:44 Ur Specific [place] 1.010 (1.000-1.030) 10/29/17 17:44 Urine Protein Negative (NEGATIVE) 10/29/17 17:44 Urine Glucose (UA) Negative (NEGATIVE) 10/29/17 17:44 Urine Ketones Negative (NEGATIVE) 10/29/17 17:44 Urine Occult Blood 1+ (NEGATIVE) 10/29/17 17:44 Urine Nitrite Negative (NEGATIVE) 10/29/17 17:44 Urine Bilirubin Negative (NEGATIVE) 10/29/17 17:44 Urine Urobilinogen Normal (NORMAL) 10/29/17 17:44 Ur Leukocyte Esterase Negative (NEGATIVE) 10/29/17 17:44 Urine RBC 0-2 /HPF (NONE SEEN) 10/29/17 17:44 Urine WBC 0-2 /HPF (NONE SEEN) 10/29/17 17:44 Ur Squamous Epith Cells Rare /HPF (NEGATIVE) 10/29/17 17:44 Urine Bacteria Negative /HPF (NEGATIVE) 10/29/17 17:44 Ur Culture Indicated? No/not indicated 10/29/17 17:44 - XRAY XRAY Interpreted by: Radiologist XRAY Findings: REPORT DISCUSS WITH PATIENT. - EKG Rhythm: NSR (EKG NOTED.) - Diagnosis Discharge Problem: Bronchitis Chest pain Qualifiers: Chest pain type: precordial pain Qualified Code(s): R07.2 - Precordial pain - Discharge Plan Disposition: 01 HOME, SELF-CARE Condition: Stable Prescriptions: Cefdinir [Omnicef Cap 300 mg] 300 mg PO BID #20 cap Ranitidine HCl [ZANTAC TAB 150 MG *] 150 mg PO BID #60 tab - Follow ups/Referrals Follow ups/Referrals: Alon Leblanc [Primary Care Provider] - 10/30/17 - Instructions Instructions: Acute Bronchitis, Adult, [id number], Chest Pain Observation Additional Instructions: RETURN TO ED IF WORSE.
[2017-10-29 17:19] LABS: BASOPHILS % (AUTO) 0.5 % (0.2-1.0); EOSINOPHILS # (AUTO) 0.1 x10^3/uL (0.0-0.2); EOSINOPHILS % (AUTO) 1.5 % (0.9-2.9); HEMATOCRIT 39.5 % (42.0-54.0); HEMOGLOBIN 13.3 g/dL (13.5-18.0); LYMPHOCYTES # (AUTO) 3.5 X10^3/uL (1.3-2.9); LYMPHOCYTES % (AUTO) 37.9 % (21.0-51.0); MEAN CORPUSCULAR HEMOGLOBIN 30.9 pg (27.0-34.0); MEAN CORPUSCULAR HGB CONC 33.7 g/dL (33.0-35.0); MEAN CORPUSCULAR VOLUME 91.6 fL (80.0-100.0); MEAN PLATELET VOLUME 8.1 fL (7.4-11.0); MONOCYTES # (AUTO) 0.8 x10^3/uL (0.3-0.8); MONOCYTES % (AUTO) 8.2 % (0.0-13.0); NEUTROPHILS # (AUTO) 4.8 x10^3/uL (2.2-4.8); NEUTROPHILS % (AUTO) 51.9 % (42.0-75.0); PLATELET COUNT 311 X10^3/uL (150.0-450.0); RED BLOOD COUNT 4.31 X10^6/uL (4.7-6.0); RED CELL DISTRIBUTION WIDTH 14.3 % (11.6-16.5); WHITE BLOOD COUNT 9.3 X10^3/uL (3.6-10.0)
[2017-10-29 17:45] LABS: BLOOD UREA NITROGEN 10 mg/dL (7-18); CARBON DIOXIDE 23.2 mmol/L (21-32); CHLORIDE 107 mmol/L (98-107); CREATININE 1.24 mg/dL (0.70-1.30); SODIUM 141 mmol/L (136-145); TROPONIN I < 0.02 ng/mL (0-1.5); eGFR BLACK RACES > 60 (>60); eGFR NON BLACK RACES > 60 (>60)
[2017-10-29 17:50] LABS: ALANINE AMINOTRANSFERASE 19 Units/L (12-78); ALBUMIN 3.5 g/dL (3.4-5.0); ALKALINE PHOSPHATASE 86 Units/L (46-116); ASPARTATE AMINO TRANSFERASE 16 Units/L (15-37); CKMB % 3.4 % (<4); CREATINE KINASE 50 Units/L (39-308); CREATINE KINASE MB 1.7 ng/mL (0-4.0)
[2017-10-29 18:01] LABS: BILIRUBIN,URINE NEGATIVE (NEGATIVE); BLOOD/HEMOGLOBIN,URINE 1+ (NEGATIVE); GLUCOSE, URINE NEGATIVE (NEGATIVE); KETONES,URINE NEGATIVE (NEGATIVE); LEUKOCYTE ESTERASE ,URINE NEGATIVE (NEGATIVE); NITRITES,URINE NEGATIVE (NEGATIVE); PROTEIN,URINE NEGATIVE (NEGATIVE); UROBILINOGEN,URINE NORMAL (NORMAL)
[2017-10-29 18:13] LABS: APPEARANCE,URINE CLEAR (CLEAR); COLOR,URINE YELLOW (YELLOW)
[2017-10-29 18:15] LABS: RBC,URINE 0-2 /HPF (NONE SEEN); SQUAMOUS EPITHELIAL CELL,UR RARE /HPF (NEGATIVE)
[2017-10-29 18:17] LABS: BACTERIA,URINE NEGATIVE /HPF (NEGATIVE)
[2017-10-29] MEDS ORDERED: NS 250 ML IV 250 ML IV ONE (18:36)
--- NOTE | 2017-10-29 19:57 | CT ---
HISTORY: Chest pain, elevated D-dimer, and cough. Study: CT chest with contrast Comparison: Chest x-ray dated same day and CT chest dated November 12, 2016. Technique: Multiple axial images of the chest were obtained from the thoracic inlet to the upper abdo men after the administration of IV contrast. MIP images were obtained. Dose reduction techniques incl uding Automated Exposure Control (AEC) and adjustment of mA and kV were utilized. Findings: The mediastinum does not demonstrate significant pathological lymphadenopathy. There is no paracardi al effusion observed. The thoracic aorta is normal in its contour without evidence for aneurysmal di latation. The central pulmonary arterial system does not demonstrate central filling defects to sugg est pulmonary emboli. Coronary artery calcifications. Biapical scarring. Moderate to severe centrilobular and paraseptal emphysematous changes. Bibasilar s carring versus atelectasis. No suspicious pulmonary nodule, mass, pleural effusion, focal consolidati on, or pneumothorax. Bilateral nonobstructing renal nephroliths versus vascular calcifications. Ather osclerotic vascular calcifications of the abdominal aorta with mural thrombus. No significant aneurys mal dilatation. Stable appearing cyst within the interpolar left kidney. Remaining upper abdominal st ructures are unremarkable. Degenerative changes of the spine. Multiple stable appearing compression f ractures of the thoracic spine. Stable appearing fracture of the sternum. No aggressive osseous lesio ns. IMPRESSION: 1. No CT evidence of acute thoracic pathology or pulmonary embolus. 2. Other chronic findings as above. Reported By:
[2017-10-29 20:06] VITALS: BP 132/74
[2017-10-29] MEDS ORDERED: ROCEPHIN VIAL 1 GM 1 GM in NS 100 ML IV + SPIKE MINIBAG* 100 ML IV ONE (20:08)
[2017-10-29] MEDS ORDERED: PEPCID 20 MG IV PREMIX* 20 MG/50 ML BAG IV ONE ×2 (20:08→20:25)
[2017-10-29] MEDS ORDERED: ROCEPHIN 1 GM IV PREMIX 1 GM/50 ML IV.SOLN. IV ONE (20:26)
== END 2017-10-29 20:54 | disposition home or self-care (01) ==
LOC: ER 15:27
DX: J40 Bronchitis, not specified as acute or chronic (principal); R07.2 Precordial pain; R94.31 Abnormal electrocardiogram [ECG] [EKG]; R79.1 Abnormal coagulation profile
CPT/HCPCS: 36415; 71045; 71275; 80053; 81001; 82550; 82553; 84484; 85025; 85378; 93005; 96365; 96374; 96375; 99283; 99285; A4222; S0028; J0696